=== PATIENT | male | born 1980 | race African-American/Black ===

== ENCOUNTER 2017-03-23 23:36 | Emergency (ER) | payer OTHER ==
[~2017-03-23] VITALS: Ht 172.7 cm; Wt 77.1 kg
[~2017-03-23 23:36] MED LIST: AZITHROMYCIN 2250 MG PO; FLAGYL500 MG PO; FLEXERIL PO; NAPROSYN500 MG PO; NOHOMEMEDICATIONS; NORCO 5-325 TA1 EACH PO
[2017-03-23 23:37] VITALS: BP 160/98
== END 2017-03-24 00:33 ==
LOC: ER 23:36
DX: S51.011A Laceration without foreign body of right elbow, initial encounter (principal); W25.XXXA Contact with sharp glass, initial encounter; Y93.89 Activity, other specified; Y92.89 Other specified places as the place of occurrence of the external cause; Y99.8 Other external cause status

== ENCOUNTER 2017-05-14 07:12 | Emergency (ER) | payer OTHER ==
[~2017-05-14] VITALS: Ht 175.3 cm; Wt 72.6 kg
[2017-05-14 07:14] VITALS: BP 124/91
== END 2017-05-14 07:50 | disposition home or self-care (01) ==
LOC: ER 07:12
DX: S51.011D Laceration without foreign body of right elbow, subsequent encounter (principal); F17.210 Nicotine dependence, cigarettes, uncomplicated; X58.XXXD Exposure to other specified factors, subsequent encounter

== ENCOUNTER 2020-07-15 22:34 | Emergency (ER) | payer OTHER ==
[~2020-07-15] VITALS: Ht 172.7 cm; Wt 73.5 kg
[~2020-07-15 22:34] MED LIST changes: +IBUPROFEN 400400 M2 PO
[2020-07-15] MEDS ORDERED: [UNRECOGNIZED DRUG - OTHER] PO (22:41)
[2020-07-15] MEDS ORDERED: PENICILLIN VK500 MG PO (22:49)
[2020-07-15] MEDS ORDERED: NORCO7.5 PO (22:49)
== END 2020-07-15 23:00 | disposition home or self-care (01) ==
LOC: ER 22:34
DX: K08.89 Other specified disorders of teeth and supporting structures (principal); F17.210 Nicotine dependence, cigarettes, uncomplicated

== ENCOUNTER 2020-12-04 12:14 | Emergency (ER) | payer OTHER ==
[~2020-12-04] VITALS: Ht 172.7 cm; Wt 72.6 kg
[~2020-12-04 12:14] MED LIST changes: +NORCO7.5 PO; +PENICILLIN VK500 MG PO; +[UNRECOGNIZED DRUG - OTHER] PO
[2020-12-04 12:18] VITALS: BP 163/107
[2020-12-04] MEDS ORDERED: HYDROCODON-ACE1 EAC7 PO (12:30)
[2020-12-04] MEDS ORDERED: AMOXICILLIN500 M1 PO (12:30)
== END 2020-12-04 12:31 | disposition home or self-care (01) ==
LOC: ER 12:14
DX: K04.7 Periapical abscess without sinus (principal); F17.210 Nicotine dependence, cigarettes, uncomplicated

== ENCOUNTER 2021-04-09 15:31 | Emergency (ER) | payer OTHER ==
[~2021-04-09] VITALS: Ht 172.7 cm; Wt 77.1 kg
[~2021-04-09 15:31] MED LIST changes: +AMOXICILLIN500 M1 PO; +HYDROCODON-ACE1 EAC7 PO
[2021-04-09 15:39] VITALS: BP 128/63
[2021-04-09] MEDS ORDERED: PENICILLIN V P500 MG PO (16:08)
== END 2021-04-09 16:33 | disposition home or self-care (01) ==
LOC: ER 15:31
DX: K04.7 Periapical abscess without sinus (principal); F17.210 Nicotine dependence, cigarettes, uncomplicated; F12.90 Cannabis use, unspecified, uncomplicated

== ENCOUNTER 2021-05-06 09:09 | Emergency (ER) | payer OTHER ==
[~2021-05-06] VITALS: Ht 172.7 cm; Wt 77.1 kg
[~2021-05-06 09:09] MED LIST changes: +PENICILLIN V P500 MG PO
[2021-05-06] MEDS ORDERED: AMOXICILLIN875 MG PO (09:28)
[2021-05-06] MEDS ORDERED: NORCO7.5 PO (09:28)
[2021-05-06 09:32] VITALS: BP 128/102
== END 2021-05-06 09:32 | disposition home or self-care (01) ==
LOC: ER 09:09
DX: K08.89 Other specified disorders of teeth and supporting structures (principal); F17.210 Nicotine dependence, cigarettes, uncomplicated; F12.90 Cannabis use, unspecified, uncomplicated; Z79.899 Other long term (current) drug therapy

== ENCOUNTER 2021-06-05 04:50 | Emergency (ER) | payer OTHER ==
[~2021-06-05] VITALS: Ht 175.3 cm; Wt 72.6 kg
[~2021-06-05 04:50] MED LIST changes: +AMOXICILLIN875 MG PO
[2021-06-05] MEDS ORDERED: PENICILLIN VK500 M1 PO (05:23)
[2021-06-05 05:51] VITALS: BP 147/83
[2021-06-05] MEDS ORDERED: AMOXIL 875 MG875 M2 PO (13:22)
== END 2021-06-05 05:52 | disposition home or self-care (01) ==
LOC: ER 04:50
DX: K04.7 Periapical abscess without sinus (principal); F17.210 Nicotine dependence, cigarettes, uncomplicated; Z79.899 Other long term (current) drug therapy

== ENCOUNTER 2021-06-05 11:01 | Emergency (ER) | payer OTHER ==
[~2021-06-05] VITALS: Ht 172.7 cm; Wt 72.6 kg
[~2021-06-05 11:01] MED LIST changes: +PENICILLIN VK500 M1 PO
[2021-06-05 11:41] VITALS: BP 117/75
[2021-06-05] MEDS ORDERED: AMOXIL 875 MG875 M2 PO (13:22)
== END 2021-06-05 13:50 | disposition home or self-care (01) ==
LOC: ER 11:01
DX: R42 Dizziness and giddiness (principal); T36.0X5A Adverse effect of penicillins, initial encounter; R00.2 Palpitations; F17.210 Nicotine dependence, cigarettes, uncomplicated; Z79.899 Other long term (current) drug therapy; Y92.89 Other specified places as the place of occurrence of the external cause

== ENCOUNTER 2021-07-02 15:04 | Emergency (ER) | payer OTHER ==
[~2021-07-02] VITALS: Ht 172.7 cm; Wt 72.6 kg
[~2021-07-02 15:04] MED LIST changes: +AMOXIL 875 MG875 M2 PO
[2021-07-02 16:08] VITALS: BP 139/81
== END 2021-07-02 16:08 | disposition home or self-care (01) ==
LOC: ER 15:04
DX: R51.9 Headache, unspecified (principal); F17.210 Nicotine dependence, cigarettes, uncomplicated; F12.90 Cannabis use, unspecified, uncomplicated; Z88.0 Allergy status to penicillin